=== PATIENT | male | born 1935 | race Caucasian/White ===

== ENCOUNTER → 2017-11-26 | Day surgery (SDC) | payer MEDICARE, OTHER ==
[~2017-11-26] MED LIST: Propofol 200 MG/20 ML SDV IV ONE
[2017-11-26] MEDS: Lactated Ringers 1,000 ML IV SCH (07:29)
[2017-11-26 09:15] VITALS: BP 140/69
--- NOTE | 2017-11-26 09:33 | OR ---
DATE OF OPERATION: 11/26/2017 PREOPERATIVE DIAGNOSIS: HEME-POSITIVE STOOL. POSTOPERATIVE DIAGNOSIS: HEME-POSITIVE STOOL. SURGEON: Scottie Mansfield MD PROCEDURE: FULL-LENGTH COLONOSCOPY, POLYP REMOVAL X3, BIOPSY X1. 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 COMPLICATIONS: None. SPECIMEN: 1. Three sessile polyps. 2. Rectal ulcer. FINDINGS: 1. Full-length colonoscopy. 2. Lhbe-[id number] sigmoid diverticulosis. 3. Three separate sessile polyps all of likely hyperplastic. 4. Focal area of proctitis rectal vault. RECOMMENDATIONS: Colonoscopy on a p.r.n. basis only at this point. INDICATIONS: The patient was in for a physical, was found to have heme-positive stool. Three years ago, had some polyps removed. Dr. Tovar sent him for colonoscopy. DESCRIPTION OF PROCEDURE: The patient was prepped and draped, placed in the left lateral decubitus position. A lubricated Olympus colonoscope was inserted and easily advanced to the cecum. Direct visualization of the ileocecal valve and appendiceal orifice was accomplished. The bowel prep was adequate, but certain areas there was a lot of stool most of this could be suctioned. Upon withdrawal, rectal vault and ascending colon appeared benign. In the proximal transverse colon, the patient did have a slightly stocked sessile polyp removed easily with a snare and suctioned a polyp trap #1. Further down the transverse colon in the mid to distal portion that was a flat hyperplastic appearing sessile polyp that was removed in its entirety with 2 cold forceps biopsies. The rest of the transverse and descending colon appeared benign. The patient does have some scattered diverticula in the sigmoid area, but very mild. In the distal sigmoid colon, the patient again had another small or even sessile polyp likely hyperplastic removed with cold forceps biopsy x2. The rectosigmoid area was unremarkable. In the rectal vault, the patient had a focal area of inflammation with a small erosion, biopsy was taken. Retroflexion showed some perianal hemorrhoidal disease, but otherwise no lesions. Air was then suctioned. Scope was removed without complication. ANGELA/TAO /[id number]
== END ==
LOC: CC.SDS 07:08
PROVIDERS: ATTEND Family Medicine
DX: D12.3 Benign neoplasm of transverse colon (principal); K63.5 Polyp of colon; K57.30 Diverticulosis of large intestine without perforation or abscess without bleeding; K62.89 Other specified diseases of anus and rectum; R19.5 Other fecal abnormalities; I10 Essential (primary) hypertension; E78.5 Hyperlipidemia, unspecified; E11.9 Type 2 diabetes mellitus without complications; Z86.010 Personal history of colon polyps; Z87.891 Personal history of nicotine dependence; Z79.82 Long term (current) use of aspirin; Z79.84 Long term (current) use of oral hypoglycemic drugs; Z79.899 Other long term (current) drug therapy
CPT/HCPCS: 36415; 45380; 45385; 82962; 85610; J2704; J7120; 00811

== ENCOUNTER 2020-01-20 15:35 | Emergency (ER) | payer MEDICARE, OTHER ==
--- NOTE | 2020-01-20 16:20 | EDM.PDOC ---
ED HPI GENERAL MEDICAL PROBLEM - General Chief Complaint: General Stated Complaint: weakness Time Seen by Provider: 01/20/20 15:37 Source of Information: Reports: Patient History Limitations: Reports: No Limitations - History of Present Illness INITIAL COMMENTS - FREE TEXT/NARRATIVE: This patient is an 84 year old male that presents to the ER via EMS. Patient reports for months he has been falling and passing out when he falls. Patient reports he has been seen by other providers and no one can tell him why he is passing out and falling. Patient reports that he fell yesterday due to his knees giving out and fell. He reports he fell on his right knee. Patient reports that today his knees gave out on him again today. He reports that as he was falling to the ground he passed out again. He reports it was only a split second. Patient reports that he has been feeling generally weak, fatigued, short of breath. Patient reports he has been having black stools. He reports this has been much worse since yesterday. His reports he refused to come to the Er yesterday because "he is a stubborn man". Onset: Gradual Duration: Week(s): (8), Getting Worse Location: Reports: Lower Extremity, Right Quality: Reports: Ache Severity: Moderate Improves with: Reports: Immobilization Worsens with: Reports: Movement Associated Symptoms: Reports: Malaise, Shortness of Breath, Syncope, Weakness. Denies: Confusion, Chest Pain, Cough, cough w sputum, Diaphoresis, Fever/Chills, Headaches, Loss of Appetite, Nausea/Vomiting, Rash, Seizure - Related Data Allergies Allergy/AdvReac Type Severity Reaction Status Date / Time No Known Allergies Allergy Verified 01/20/20 16:19 Home Meds: Home Meds Aspirin 162.5 mg PO DAILY 10/30/14 [History] Acetaminophen [Tylenol] 325 mg PO ASDIRECTED PRN 10/31/14 [History] Simvastatin [Zocor] 10 mg PO DAILY 03/26/16 [History] Cholecalciferol (Vitamin D3) [Vitamin D3] 5,000 unit PO DAILY 11/22/17 [History] Warfarin [Coumadin] 5 mg PO SUMOTUWETHFR 11/22/17 [History] Warfarin [Coumadin] 0.5 mg PO SA 01/20/20 [History] Past Medical History HEENT History: Reports: Impaired Vision Cardiovascular History: Reports: Blood Clots/VTE/DVT, High Cholesterol, Hypertension - Past Surgical History Musculoskeletal Surgical History: Reports: Knee Replacement ED ROS GENERAL - Review of Systems Review Of Systems: See Below Constitutional: Reports: Malaise, Weakness, Fatigue HEENT: Reports: No Symptoms Respiratory: Reports: Shortness of Breath. Denies: Wheezing, Pleuritic Chest Pain, Cough, Sputum, Hemoptysis Cardiovascular: Reports: Dyspnea on Exertion, Lightheadedness, Syncope. Denies: Chest Pain, Palpitations Endocrine: Reports: No Symptoms GI/Abdominal: Denies: Abdominal Pain, Black Stool, Bloody Stool, Constipation, Diarrhea, Hematemesis, Nausea, Vomiting : Reports: No Symptoms Musculoskeletal: Reports: No Symptoms Skin: Reports: Pallor Neurological: Reports: Dizziness, Headache, Syncope, Weakness Psychiatric: Reports: No Symptoms Hematologic/Lymphatic: Reports: No Symptoms Immunologic: Reports: No Symptoms ED EXAM, GENERAL - Physical Exam Exam: See Below General Appearance: Moderate Distress (Very Pallor), Obese Eye Exam: Bilateral Eye: PERRL, Other (pale conjucta) Ears: Normal External Exam, Normal Canal, Hearing Grossly Normal, Normal TMs Ear Exam: Bilateral Ear: Auricle Normal, Canal Normal, TM normal Nose: Normal Inspection, Normal Mucosa, No Blood Throat/Mouth: Normal Inspection, Normal Lips, Normal Teeth, Normal Gums, Normal Oropharynx, Normal Voice, No Airway Compromise Head: Atraumatic, Normocephalic Neck: Normal Inspection, Supple, Non-Tender, Full Range of Motion Respiratory/Chest: No Respiratory Distress, Lungs Clear, Normal Breath Sounds, No Accessory Muscle Use Cardiovascular: Normal Peripheral Pulses, Regular Rate, Rhythm, No Edema, No JVD, No Rub, Systolic Murmur Peripheral Pulses: 2+: Radial (L), Radial (R), Posterior Tibial (L), Posterior Tibial (R) GI/Abdominal: Soft, Tender (diffuse) Back Exam: Normal Inspection, Full Range of Motion Extremities: Joint Swelling (right knee. ROm intact. but painful. ), Other (Right knee swelling, ecchymosis. Right lateral thigh ecchymosis. Left anterior chest ecchymosis. ) Neurological: Alert, Oriented, CN II-XII Intact, Normal Cognition, No Motor/Sensory Deficits Psychiatric: Normal Affect, Normal Mood Skin Exam: Warm, Dry, Intact, Ecchymosis (right knee, right lateral thigh, right anterior upper chest. ), Pallor (Very Pallor) Lymphatic: No Adenopathy EKG INTERPRETATION EKG Date: 01/20/20 Time: 15:48 Rhythm: Other (1st degre av block) Rate (Beats/Min): 69 ST-T: Normal Comparison: Change From Previous EKG Course - Vital Signs Last Recorded V/S: Last Vital Signs Temp 97.9 F 01/20/20 16:31 Pulse 68 01/20/20 16:31 Resp 18 01/20/20 16:31 BP 139/58 L 01/20/20 16:31 Pulse Ox 98 01/20/20 16:31 - Orders/Labs/Meds Orders: Active Orders 24 hr Category Date Time Status Chest 1V Frontal [CR] Stat Exams 01/20/20 15:38 Taken Head wo Cont [CT] Stat Exams 01/20/20 15:38 Taken Knee 3V Rt [CR] Stat Exams 01/20/20 15:44 Taken CULTURE BLOOD [BC] Stat Lab 01/20/20 16:20 Received CULTURE BLOOD [BC] Stat Lab 01/20/20 16:20 Received FRESH FROZEN PLASMA [BBK] Stat Lab 01/20/20 16:20 Results RED BLOOD CELLS LP [BBK] Stat Lab 01/20/20 16:20 Results TYPE AND SCREEN [BBK] Stat Lab 01/20/20 16:20 Results Pantoprazole [ProTONIX IV] 80 mg Med 01/20/20 17:00 Active Sodium Chloride 0.9% [Normal Saline] 100 ml IV .CONTINUOUS Sodium Chloride 0.9% [Normal Saline] 250 ml Med 01/20/20 17:45 Active IV ASDIRECTED Blood Culture x2 Reflex Set [OM.PC] Stat Oth 01/20/20 15:38 Ordered Transfuse Fresh Frozen Plasma [COMM] Stat Oth 01/20/20 17:04 Ordered Transfuse Red Blood Cells [COMM] Stat Oth 01/20/20 17:05 Ordered Medication Orders Pantoprazole Sodium 80 mg/ (Sodium Chloride) 100 mls @ 10 mls/hr IV .CONTINUOUS RAMON Last Admin: 01/20/20 17:00 Dose: 10 mls/hr Documented by: BELIMIC Sodium Chloride (Normal Saline) 250 mls @ 50 mls/hr IV ASDIRECTED RAMON Labs: Laboratory Tests 01/20/20 01/20/20 01/20/20 Range/Units 16:20 16:20 16:20 WBC 5.2 (5.0-10.0) 10^3/uL RBC 1.42 L (4.50-6.00) 10^6/uL Hgb 3.9 L* (14.0-18.0) g/dL Hct 13.1 L* (40.0-54.0) % MCV 92.3 (82.0-94.0) fL MCH 27.5 (27.0-32.0) pg MCHC 29.8 L (33.0-38.0) g/dL RDW Coeff of Tammie 15.8 H (11.0-15.0) % Plt Count 77 L (150-400) 10^3/uL Neut % (Auto) 76.9 (35-85) % Lymph % (Auto) 12.7 (10-55) % [place] % (Auto) 9.6 (0-16) % Eos % (Auto) 0.2 (0-5) % Baso % (Auto) 0.6 (0-3) % Neut # (Auto) 4.01 (1.80-7.00) 10^3/uL Lymph # (Auto) 0.66 L (1.00-4.80) 10^3/uL [place] # (Auto) 0.50 (0.00-0.80) 10^3/uL Eos # (Auto) 0.01 (0.00-0.45) 10^3/uL Baso # (Auto) 0.03 10^3/uL PT (9.7-12.3) SEC INR (0.92-1.18) ABG pH (7.35-7.45) ABG pCO2 (35-45) mm/Hg0 ABG pO2 (80-100) mm/Hg ABG HCO3 (22.0-26.0) mm/L ABG O2 Saturation (95-98) % ABG Base Excess (-2.0-3.0) O2 Delivery Device Sodium 135 L (136-145) mEq/L Potassium 4.4 (3.5-5.0) mEq/L Chloride 101 (98-106) mEq/L Carbon Dioxide 25 (21-32) mmol/L BUN 16 (7-18) mg/dL Creatinine 1.3 (0.7-1.3) mg/dL Est Cr Clr Drug Dosing TNP Estimated GFR (MDRD) 53 L (>=60) mL/min Glucose 153 H (75-99) mg/dL Lactic Acid (0.4-2.0) mmol/L Calcium 8.6 (8.4-10.1) mg/dL Total Bilirubin 0.4 (0.0-1.0) mg/dL AST 22 (15-37) U/L ALT 22 (12-78) U/L Alkaline Phosphatase 48 (46-116) U/L Creatine Kinase 87 (35-232) U/L Troponin I < 0.017 (0.00-0.06) ng/mL Total Protein 5.9 L (6.4-8.2) g/dL Albumin 3.1 L (3.4-5.0) g/dL Blood Type AB NEGATIVE Gel Antibody Screen Negative Crossmatch See Detail 01/20/20 01/20/20 01/20/20 Range/Units 16:20 16:25 16:25 WBC (5.0-10.0) 10^3/uL RBC (4.50-6.00) 10^6/uL Hgb (14.0-18.0) g/dL Hct (40.0-54.0) % MCV (82.0-94.0) fL MCH (27.0-32.0) pg MCHC (33.0-38.0) g/dL RDW Coeff of Tammie (11.0-15.0) % Plt Count (150-400) 10^3/uL Neut % (Auto) (35-85) % Lymph % (Auto) (10-55) % [place] % (Auto) (0-16) % Eos % (Auto) (0-5) % Baso % (Auto) (0-3) % Neut # (Auto) (1.80-7.00) 10^3/uL Lymph # (Auto) (1.00-4.80) 10^3/uL [place] # (Auto) (0.00-0.80) 10^3/uL Eos # (Auto) (0.00-0.45) 10^3/uL Baso # (Auto) 10^3/uL PT 40.8 H (9.7-12.3) SEC INR 4.10 H* (0.92-1.18) ABG pH 7.44 (7.35-7.45) ABG pCO2 29 L (35-45) mm/Hg0 ABG pO2 118 H (80-100) mm/Hg ABG HCO3 19.7 L (22.0-26.0) mm/L ABG O2 Saturation 99 H (95-98) % ABG Base Excess -4.0 L (-2.0-3.0) O2 Delivery Device Room air Sodium (136-145) mEq/L Potassium (3.5-5.0) mEq/L Chloride (98-106) mEq/L Carbon Dioxide (21-32) mmol/L BUN (7-18) mg/dL Creatinine (0.7-1.3) mg/dL Est Cr Clr Drug Dosing Estimated GFR (MDRD) (>=60) mL/min Glucose (75-99) mg/dL Lactic Acid 3.1 H (0.4-2.0) mmol/L Calcium (8.4-10.1) mg/dL Total Bilirubin (0.0-1.0) mg/dL AST (15-37) U/L ALT (12-78) U/L Alkaline Phosphatase (46-116) U/L Creatine Kinase (35-232) U/L Troponin I (0.00-0.06) ng/mL Total Protein (6.4-8.2) g/dL Albumin (3.4-5.0) g/dL Blood Type Gel Antibody Screen Crossmatch Meds: Medications Generic Name Dose Route Start Last Admin Trade Name Freq PRN Reason Stop Dose Admin Pantoprazole Sodium 80 mg/ 100 mls @ 10 mls/hr 01/20/20 17:00 01/20/20 17:00 Sodium Chloride IV 10 mls/hr .CONTINUOUS RAMON Administration Sodium Chloride 250 mls @ 50 mls/hr 01/20/20 17:45 Normal Saline IV ASDIRECTED RAMON Discontinued Medications Generic Name Dose Route Start Last Admin Trade Name Freq PRN Reason Stop Dose Admin Phytonadione 10 mg/ Sodium 51 mls @ 100 mls/hr 01/20/20 17:03 01/20/20 17:22 Chloride IV 01/20/20 17:33 Not Given NOW ONE Pantoprazole Sodium 80 mg 01/20/20 16:45 01/20/20 17:00 Protonix Iv IVPUSH 01/20/20 16:46 80 mg ONETIME ONE Administration Pantoprazole Sodium Confirm 01/20/20 16:35 01/20/20 17:00 Protonix Iv Administered 01/20/20 16:36 Not Given Dose 40 mg .ROUTE .STK-MED ONE Phytonadione 10 mg 01/20/20 17:14 01/20/20 17:19 Aquamephyton SUBCUT 01/20/20 17:15 10 mg ONETIME ONE Administration - Radiology Interpretation Free Text/Narrative:: Head Ct: No acute intracranial abnormality Right knee: Hardware intact, no fracture. CXR: No infiltrates CT Results Date: 01/20/20 CT Results Time: 17:35 - Re-Assessments/Exams Free Text/Narrative Re-Assessment/Exam: 01/20/20 17:00 Got hgb results. Ordered protonix, vitamin k, FFP, 3 units of RBCs. 01/20/20 1710 Called and spoke to Dr. Coe at [facility]. He reports to give whats been ordered and transfer this patient, he has accepted. Flight also has been paged and in route. I explained to patient and all risks and benefits associated with vitamin k, ffp, reversing coumadin, blood, ffp, and transfer. They have accepted all risk because they outweigh the benefits. 01/20/20 17:22 Vitamin K not able to be given IV at [facility], will give SQ. Departure - Departure Time of Disposition: 17:19 Disposition: DC/Tfer to Acute Hospital 02 Condition: Critical Clinical Impression: GI bleed Qualifiers: GI bleed type/associated pathology: unspecified gastrointestinal hemorrhage type Qualified Code(s): K92.2 - Gastrointestinal hemorrhage, unspecified Coumadin toxicity Qualifiers: Encounter type: initial encounter Injury intent: accidental or unintentional Q ualified Code(s): T45.511A - Poisoning by anticoagulants, accidental (unintentional), initial encounter Anemia Qualifiers: Anemia type: unspecified type Qualified Code(s): D64.9 - Anemia, unspecified - Discharge Information *PRESCRIPTION DRUG MONITORING PROGRAM REVIEWED*: Not Applicable *COPY OF PRESCRIPTION DRUG MONITORING REPORT IN PATIENT SHELTON: Not Applicable Referrals: Yamileth Díaz, [employer] [Primary Care Provider] - Forms: ED Department Discharge Sepsis Event Note (ED) - Focused Exam Vital Signs: Vital Signs Temp Pulse Resp BP Pulse Ox 01/20/20 16:31 97.9 F 68 18 139/58 L 98 - My Orders Last 24 Hours: My Active Orders 01/20/20 15:38 Chest 1V Frontal [CR] Stat Head wo Cont [CT] Stat Blood Culture x2 Reflex Set [OM.PC] Stat 01/20/20 15:44 Knee 3V Rt [CR] Stat 01/20/20 16:20 CULTURE BLOOD [BC] Stat CULTURE BLOOD [BC] Stat FRESH FROZEN PLASMA [BBK] Stat RED BLOOD CELLS LP [BBK] Stat TYPE AND SCREEN [BBK] Stat 01/20/20 17:00 Pantoprazole [ProTONIX IV] 80 mg Sodium Chloride 0.9% [Normal Saline] 100 ml IV .CONTINUOUS 01/20/20 17:04 Transfuse Fresh Frozen Plasma [COMM] Stat 01/20/20 17:05 Transfuse Red Blood Cells [COMM] Stat 01/20/20 17:45 Sodium Chloride 0.9% [Normal Saline] 250 ml IV ASDIRECTED - Assessment/Plan Last 24 Hours: My Active Orders 01/20/20 15:38 Chest 1V Frontal [CR] Stat Head wo Cont [CT] Stat Blood Culture x2 Reflex Set [OM.PC] Stat 01/20/20 15:44 Knee 3V Rt [CR] Stat 01/20/20 16:20 CULTURE BLOOD [BC] Stat CULTURE BLOOD [BC] Stat FRESH FROZEN PLASMA [BBK] Stat RED BLOOD CELLS LP [BBK] Stat TYPE AND SCREEN [BBK] Stat 01/20/20 17:00 Pantoprazole [ProTONIX IV] 80 mg Sodium Chloride 0.9% [Normal Saline] 100 ml IV .CONTINUOUS 01/20/20 17:04 Transfuse Fresh Frozen Plasma [COMM] Stat 01/20/20 17:05 Transfuse Red Blood Cells [COMM] Stat 01/20/20 17:45 Sodium Chloride 0.9% [Normal Saline] 250 ml IV ASDIRECTED Plan: PLEASE SEE RN NOTE FOR PFSH. Patient is being transferred to [place] via air. The risk of transfer is crash, , worsening of condition, bleeding out. The risk of staying in [place] is , bleeding out, worsening of condition. The benefits of staying in [place] is close to home. The benefits of transfer is higher level of care, GI scope specialist, orthopedic for knee.
[2020-01-20 16:27] LABS: O2 DELIVERY DEVICE ROOM AIR
[2020-01-20 16:29] LABS: BICARBONATE,ARTERIAL 19.7 mm/L (22.0-26.0); O2 SATURATION ARTERIAL 99 % (95-98); PCO2 ARTERIAL 29 mm/Hg0 (35-45); PO2 ARTERIAL 118 mm/Hg (80-100)
[2020-01-20] MEDS ORDERED: Pantoprazole 40 MG Vial ONE (16:35)
[2020-01-20 16:36] LABS: CHLORIDE,CL 101 mEq/L (98-106); SODIUM,NA 135 mEq/L (136-145)
[2020-01-20] MEDS ORDERED: Pantoprazole 40 MG Vial IVPUSH ONE (16:45)
[2020-01-20] MEDS ORDERED: Pantoprazole 80 MG in Sodium Chloride 0.9% 100 ML IV SCH (17:00)
[2020-01-20] MEDS ORDERED: Phytonadione 10 MG in Sodium Chloride 0.9% 50 ML IV ONE (17:03)
[2020-01-20] MEDS: Sodium Chloride 0.9% 250 ML IV SCH ×2 (17:53→17:54)
[2020-01-20 18:01] VITALS: BP 152/63; PULSE 70
== END 2020-01-20 18:30 ==
LOC: CC.ED 15:35
DX: K92.2 Gastrointestinal hemorrhage, unspecified (principal); T45.511A Poisoning by anticoagulants, accidental (unintentional), initial encounter; D64.9 Anemia, unspecified; E78.00 Pure hypercholesterolemia, unspecified; I10 Essential (primary) hypertension; Z79.82 Long term (current) use of aspirin; Z79.01 Long term (current) use of anticoagulants; Z79.899 Other long term (current) drug therapy; Z86.718 Personal history of other venous thrombosis and embolism; Z91.81 History of falling
CPT/HCPCS: 36415; 36430; 36600; 70450; 71045; 73562-RT; 80053; 82550; 82803; 83605; 84484; 85025; 85610; 86850; 86900; 86901; 86920; 86922; 87040; 93005; 93010; 96365; 96372; 99284; 99285-25; C9113; J3430; J7050; P9016; P9017

== ENCOUNTER 2020-09-15 10:49 | Emergency (ER) | payer MEDICARE, OTHER ==
[2020-09-15 11:09] VITALS: BP 137/72; PULSE 69
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
[2020-09-15 11:39] LABS: CHLORIDE,CL 102 mEq/L (98-106); SODIUM,NA 137 mEq/L (136-145)
[2020-09-15] MEDS ORDERED: Sodium Chloride 0.9% 1,000 ML IV ONE (11:52)
[2020-09-15] MEDS ORDERED: Pantoprazole 40 MG Vial IVPUSH STA (12:43)
[2020-09-15] MEDS ORDERED: cefTRIAXone 1 GM Vial IVPUSH ONE (13:07)
== END 2020-09-15 13:14 ==
LOC: CC.ED 10:49
DX: K92.2 Gastrointestinal hemorrhage, unspecified (principal); N39.0 Urinary tract infection, site not specified; N28.9 Disorder of kidney and ureter, unspecified; E78.00 Pure hypercholesterolemia, unspecified; I10 Essential (primary) hypertension; Z79.82 Long term (current) use of aspirin; Z79.899 Other long term (current) drug therapy
CPT/HCPCS: 36415; 70450; 71045; 80053; 81001; 82550; 83615; 84484; 85025; 85610; 87086; 87088; 87186; 93005; 93010; 96374; 96375; 99284; 99285-25; C9113; J0696; J7030

== ENCOUNTER 2021-10-17 15:25 | Inpatient (IN) | payer MEDICARE, OTHER ==
[2021-10-17] MEDS ORDERED: cefTRIAXone 1 GM Vial IVPUSH ONE (16:33)
[2021-10-17] MEDS ORDERED: Ondansetron 4 MG Tab.DIS PO PRN (16:48)
[2021-10-17] MEDS ORDERED: Enoxaparin 40 MG/0.4 ML Syringe SUBCUT SCH (17:00)
[2021-10-17] MEDS: Acetaminophen 325 MG Tab PO PRN (19:40)
[2021-10-18] MEDS: Tamsulosin 0.4 MG Cap.ER PO SCH (08:14)
[2021-10-18] MEDS: Simvastatin 10 MG Tab PO SCH (08:14)
[2021-10-18] MEDS: Pantoprazole 40 MG Tab.CR PO SCH (08:14)
[2021-10-18] MEDS: Finasteride 5 MG Tab PO SCH (08:14)
[2021-10-18] MEDS: Cholecalciferol (Vitamin D3) 5,000 UNIT Tab PO SCH (08:14)
[2021-10-18] MEDS: Enoxaparin 40 MG/0.4 ML Syringe SUBCUT SCH (08:15)
[2021-10-18] MEDS ORDERED: cefTRIAXone 1 GM Vial IVPUSH SCH (17:00)
[2021-10-18] MEDS: Acetaminophen 325 MG Tab PO PRN (19:36)
[2021-10-19] MEDS: Simvastatin 10 MG Tab PO SCH (07:58)
[2021-10-19] MEDS: Enoxaparin 40 MG/0.4 ML Syringe SUBCUT SCH ×2 (07:58→08:11)
[2021-10-19] MEDS: Tamsulosin 0.4 MG Cap.ER PO SCH (07:58)
[2021-10-19] MEDS: Cholecalciferol (Vitamin D3) 5,000 UNIT Tab PO SCH (07:58)
[2021-10-19] MEDS: Finasteride 5 MG Tab PO SCH (07:58)
[2021-10-19] MEDS: Pantoprazole 40 MG Tab.CR PO SCH (07:58)
[2021-10-19 09:10] VITALS: BP 168/88; PULSE 66
[2021-10-19] MEDS ORDERED: Take Home: Ciprofloxacin 500 MG Tab, 2 Tab Pack PO ONE (09:45)
== END 2021-10-19 13:00 | disposition home or self-care (01) | DRG 690 ==
LOC: CC.ED 15:25 → CC.MS 16:35 → UNDOADMIN 16:35 → CC.MS 17:00 → UNDODISIN 10-19 13:00
PROVIDERS: ADMIT Nurse Practitioner Family; ATTEND Nurse Practitioner Family
DX: N39.0 Urinary tract infection, site not specified (principal); C61 Malignant neoplasm of prostate; B96.20 Unspecified Escherichia coli [E. coli] as the cause of diseases classified elsewhere; B96.89 Other specified bacterial agents as the cause of diseases classified elsewhere; T83.098A Other mechanical complication of other urinary catheter, initial encounter; T83.038A Leakage of other urinary catheter, initial encounter; H54.7 Unspecified visual loss; E78.00 Pure hypercholesterolemia, unspecified; I10 Essential (primary) hypertension; Z96.659 Presence of unspecified artificial knee joint; Z85.46 Personal history of malignant neoplasm of prostate; Z97.8 Presence of other specified devices; Z86.718 Personal history of other venous thrombosis and embolism; Z79.01 Long term (current) use of anticoagulants; Z85.07 Personal history of malignant neoplasm of pancreas; Z93.6 Other artificial openings of urinary tract status; Z91.81 History of falling; Z79.899 Other long term (current) drug therapy
CPT/HCPCS: 36415; 51702; 80053; 81001; 83605; 85025; 86140; 87040; 87086; 87088; 87186; 96374; 99223; 99233; 99285-25; 99315; A9270-GY; J0696; J1642; J1650

== ENCOUNTER 2022-07-24 07:58 | Emergency (ER) | payer MEDICARE, OTHER, MEDICAID ==
[~2022-07-24 07:58] MED LIST changes: -Propofol 200 MG/20 ML SDV IV ONE; +Sodium Chloride 0.9% 1,000 ML ONE
[2022-07-24] MEDS ORDERED: Sodium Chloride 0.9% 10 ML Sterile Syringe ONE (07:59)
[2022-07-24] MEDS ORDERED: Lidocaine 1% 5 ML VIAL ONE (08:06)
[2022-07-24] MEDS ORDERED: Sodium Chloride 0.9% 1,000 ML IV ONE ×2 (08:11→11:54)
[2022-07-24] MEDS ORDERED: Pantoprazole 40 MG Vial IVPUSH ONE (08:12)
[2022-07-24] MEDS ORDERED: Ondansetron 4 MG/2 ML SDV IVPUSH STA (08:15)
[2022-07-24] MEDS ORDERED: Lidocaine 1% 5 ML VIAL INJECT ONE (08:37)
[2022-07-24 08:40] LABS: PTT,PARTIAL THROMBOPLSTIN TIME 22.5 SEC (23.2-32.3)
[2022-07-24] MEDS ORDERED: Sodium Chloride 0.9% 10 ML Sterile Syringe FLUSH PRN ×2 (08:42→11:00)
[2022-07-24 08:51] LABS: CHLORIDE,CL 90 mEq/L (98-106); SODIUM,NA 125 mEq/L (136-145)
[2022-07-24 08:52] LABS: ESTIMATED GFR 29 mL/min (>=60)
[2022-07-24] MEDS ORDERED: Piperacillin/Tazobactam 3.375 GM in Sodium Chloride 0.9% 100 ML IV ONE (09:00)
[2022-07-24] MEDS ORDERED: Dextrose 5% in Water 250 ML ONE (09:05)
[2022-07-24] MEDS ORDERED: Norepinephrine 4 MG/4 ML SDV ONE (09:05)
[2022-07-24] MEDS ORDERED: Sodium Chloride 0.9% 250 ML ONE (09:40)
[2022-07-24] MEDS ORDERED: Norepinephrine 4 MG in Dextrose 5% in Water 246 ML IV SCH ×2 (09:45)
[2022-07-24] MEDS ORDERED: Dexamethasone 4 MG/ML SDV IVPUSH ONE (10:24)
[2022-07-24 11:24] VITALS: PULSE 81
[2022-07-24 11:28] VITALS: BP 161/66
[2022-07-24] MEDS: Sodium Chloride 0.9% 1,000 ML ONE ×2 (11:41→12:56)
== END 2022-07-24 12:05 ==
LOC: CC.ED 07:58
DX: A41.9 Sepsis, unspecified organism (principal); R65.21 Severe sepsis with septic shock; K92.2 Gastrointestinal hemorrhage, unspecified; I10 Essential (primary) hypertension; E78.00 Pure hypercholesterolemia, unspecified; Z79.899 Other long term (current) drug therapy; Z20.822 Contact with and (suspected) exposure to COVID-19
CPT/HCPCS: 36415; 36556; 71045; 71250; 74176; 80053; 83605; 83735; 84484; 85025; 85610; 85730; 86850; 86900; 86901; 87040; 93005; 96361; 96365; 96366; 96367; 96375; 99285; C9113; J1100; J2405; J2543; J3370; J7030; J7050; J7060; U0002; 93010; 99291

== ENCOUNTER 2022-08-07 14:37 | Inpatient (IN) | payer MEDICARE, OTHER, MEDICAID ==
[2022-08-07] MEDS ORDERED: Sodium Chloride 0.9% 10 ML Syringe FLUSH PRN (20:08)
[2022-08-07] MEDS ORDERED: Acetaminophen 325 MG Tab PO PRN (20:08)
[2022-08-07] MEDS ORDERED: LORazepam 2 MG/ML Syringe IVPUSH PRN (20:22)
[2022-08-07] MEDS ORDERED: Polyethylene Glycol 3350 Powder 17 GM Packet PO PRN (20:23)
[2022-08-07] MEDS ORDERED: Bisacodyl 10 MG Supp RECTAL PRN (20:24)
[2022-08-07] MEDS ORDERED: Atropine 1% Ophth Soln 5 ML BOTTLE SL PRN (20:29)
[2022-08-07] MEDS ORDERED: Polyvinyl Alcohol 1.4% Ophth Soln 15 ML Bottle EYEBOTH PRN (20:31)
[2022-08-07] MEDS ORDERED: Ondansetron 4 MG/2 ML SDV IVPUSH PRN (20:33)
[2022-08-07] MEDS ORDERED: Calcium Carbonate 500 MG Tab.Chew PO PRN (20:33)
[2022-08-07 21:23] VITALS: BP 67/32; PULSE 76
[2022-08-07] MEDS: HYDROmorphone 1 MG/ML Syringe IVPUSH PRN (22:21)
[2022-08-08] MEDS: Acetaminophen/HYDROcodone 325-5 MG Tab PO PRN (10:24)
[2022-08-08] MEDS: HYDROmorphone 1 MG/ML Syringe IVPUSH PRN (19:54)
[2022-08-09] MEDS: Acetaminophen/HYDROcodone 325-5 MG Tab PO PRN (08:11)
[2022-08-09] MEDS: HYDROmorphone 1 MG/ML Syringe IVPUSH PRN ×3 (09:35→23:11)
[2022-08-09] MEDS: HYDROmorphone 0.5 MG/0.5 ML Syringe IVPUSH SCH (19:35)
[2022-08-10] MEDS: LORazepam Conc Solution 2 MG/ML 30 ML Bottle PO PRN ×4 (01:23→22:01)
[2022-08-10] MEDS: HYDROmorphone 0.5 MG/0.5 ML Syringe IVPUSH PRN ×2 (02:04→22:01)
[2022-08-10] MEDS: HYDROmorphone 0.5 MG/0.5 ML Syringe IVPUSH SCH ×2 (07:40→19:14)
[2022-08-10] MEDS ORDERED: HYDROmorphone 1 MG/ML Syringe IVPUSH ONE (09:59)
[2022-08-10] MEDS ORDERED: fentaNYL 12 MCG/HR Transdermal Patch TRDERM SCH (10:00)
[2022-08-11] MEDS: HYDROmorphone 0.5 MG/0.5 ML Syringe IVPUSH PRN (05:45)
[2022-08-11] MEDS: LORazepam Conc Solution 2 MG/ML 30 ML Bottle PO PRN ×4 (05:45→22:17)
[2022-08-11] MEDS: HYDROmorphone 0.5 MG/0.5 ML Syringe IVPUSH SCH (07:52)
[2022-08-11] MEDS ORDERED: HYDROmorphone 1 MG/ML Syringe IVPUSH ONE (15:17)
[2022-08-11] MEDS: HYDROmorphone 1 MG/ML Syringe IVPUSH SCH (19:18)
[2022-08-12] MEDS: HYDROmorphone 1 MG/ML Syringe IVPUSH PRN ×3 (00:03→12:49)
[2022-08-12] MEDS: HYDROmorphone 1 MG/ML Syringe IVPUSH SCH ×2 (07:51→19:45)
[2022-08-12] MEDS: LORazepam Conc Solution 2 MG/ML 30 ML Bottle PO PRN ×2 (12:31→20:07)
[2022-08-12] MEDS ORDERED: LORazepam Conc Solution 2 MG/ML 30 ML Bottle PO STA (13:30)
[2022-08-12] MEDS ORDERED: HYDROmorphone 1 MG/ML Syringe IVPUSH STA (13:52)
[2022-08-13] MEDS: LORazepam Conc Solution 2 MG/ML 30 ML Bottle PO PRN ×2 (06:15→17:30)
[2022-08-13] MEDS: HYDROmorphone 1 MG/ML Syringe IVPUSH SCH (07:31)
[2022-08-13] MEDS ORDERED: fentaNYL 12 MCG/HR Transdermal Patch TRDERM SCH (08:00)
[2022-08-13] MEDS ORDERED: Morphine 2 MG/ML SYRINGE IVPUSH STA (17:40)
[2022-08-13] MEDS: HYDROmorphone 1 MG/ML Syringe IVPUSH PRN (18:45)
== END 2022-08-13 22:00 | disposition expired | DRG 951 ==
LOC: CC.MS 19:15
PROVIDERS: ADMIT Nurse Practitioner Family; ATTEND Nurse Practitioner Family
DX: Z51.5 Encounter for palliative care (principal); A41.89 Other specified sepsis; R65.21 Severe sepsis with septic shock; G93.41 Metabolic encephalopathy; C79.51 Secondary malignant neoplasm of bone; C79.00 Secondary malignant neoplasm of unspecified kidney and renal pelvis; N17.9 Acute kidney failure, unspecified; G89.3 Neoplasm related pain (acute) (chronic); C61 Malignant neoplasm of prostate; E78.5 Hyperlipidemia, unspecified; E11.22 Type 2 diabetes mellitus with diabetic chronic kidney disease; Z96.659 Presence of unspecified artificial knee joint; H54.7 Unspecified visual loss; E78.00 Pure hypercholesterolemia, unspecified; K52.9 Noninfective gastroenteritis and colitis, unspecified; I12.9 Hypertensive chronic kidney disease with stage 1 through stage 4 chronic kidney disease, or unspecified chronic kidney disease; N18.9 Chronic kidney disease, unspecified; Z86.718 Personal history of other venous thrombosis and embolism; Z79.01 Long term (current) use of anticoagulants; Z79.1 Long term (current) use of non-steroidal anti-inflammatories (NSAID); Z79.899 Other long term (current) drug therapy; Z79.4 Long term (current) use of insulin; Z87.440 Personal history of urinary (tract) infections
CPT/HCPCS: 99306; 99307; 99315; A9270-GY; J1170; J1642; J2270